=== PATIENT | male | born 1965 | race Caucasian/White ===

== ENCOUNTER → 2018-07-28 10:48 | Day surgery (SDC) | payer BC ==
--- NOTE | 2018-07-22 07:49 | HP ---
CC: Dr. Tanner * HISTORY AND PHYSICAL: DATE OF PLANNED ADMISSION AND SURGERY: 07/28/18 HISTORY OF PRESENT ILLNESS: Mr. Amador is a 53-year-old white male, who is admitted with left renal calculi for shock wave lithotripsy. I have been following Mr. Amador for the last 12 years because of history of renal calculus disease. In January 2006, he underwent shock wave lithotripsy because of a 1.2-cm calculus of the left kidney. A year later, he required left ureteroscopy for ureteral calculus. His last procedure was in April 2012 where he underwent a left ureteroscopy stone extraction. 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 He has been maintained on potassium citrate supplement and HCTZ. He has done well. His recent KUB and renal ultrasound showed 3 left renal calculi with the largest measuring about 7 mm in the mid pole nicholas. The calculus had a triangular shape and will be unlikely to pass spontaneously if it dropped in the ureter. PAST MEDICAL HISTORY AND SYSTEM REVIEW: He is hypertensive, maintained on lisinopril 20 mg daily and on atenolol 25 to 50 mg daily. He is on 1 baby aspirin per day, which was discontinued 1 week prior to the planned procedure. He is on vitamin B6 for the hyperoxaluria. He denies any cardiac or pulmonary symptoms. His last PSA earlier this year was 0.4. ALLERGIES: He denies any allergies to medications. PHYSICAL EXAMINATION GENERAL: He is a pleasant and healthy-looking white male. VITAL SIGNS: Blood pressure 140/80, pulse of 50. LUNGS: Clear. HEART: Regular and rhythmic. No murmurs. ABDOMEN: Soft. No masses, no tenderness, and no CVA tenderness. RECTAL EXAM: Done earlier this year showed a non-enlarged and nonsuspicious prostate. IMPRESSION: Multiple left renal calculi with the largest measuring 7 mm. PLAN: Plan is for shock wave lithotripsy of the left renal calculi. I have discussed the above plans with the patient. Some of the potential complications including hematuria and renal colic were discussed. All of his questions were answered. [id number]/[facility] #: [id number] MTDD
[~2018-07-28 10:48] MED LIST: Buffered Lidocaine 0.9% SYRIN* 5 ML/SYR SYRINGE INTRADERM ONE; Dexamethasone IV* 4 MG/ML 1 ML (4 MG) ONE; Midazolam* 1 MG/ML 5 ML VIAL (5 MG) ONE; Naloxone* 0.4 MG/ML 1 ML VIAL IV PRN; Ondansetron INJ* 2 MG/ML VIAL IV PRN; Ondansetron INJ* 2 MG/ML VIAL ONE; Propofol* 10 MG/ML 20 ML BTL IV PUSH ONE; cefTRIAXone(*) 1 GM ADVAN/BAG ONE; fentaNYL* 50 MCG/ML 2 ML VIAL (100 MCG VIAL) IV PRN; fentaNYL* 50 MCG/ML 2 ML VIAL (100 MCG VIAL) ONE; oxyCODONE/Acetamin 5/325 MG* TAB PO PRN
[2018-07-28 11:24] LABS: ABS Basophils 0 10^3/ul (0-0.2); ABS Eosinophils 0.2 10^3/ul (0-0.6); ABS Monocytes 0.4 10^3/ul (0-0.8); ABS Neutrophils 4.1 10^3/ul (1.5-7.7); ABS Nucleated RBC 0 10^3/ul; Eosinophil % 2.8 % (0-6); Hematocrit 45 % (42-52); Hemoglobin 15.4 g/dl (14.0-18.0); Lymphocyte % 17.2 % (25-47); Mean Corpuscular HGB Conc 35 g/dl (31-36); Mean Corpuscular Hemoglobin 31 pg (27-31); Mean Corpuscular Volume 89 fL (80-94); Mean Platelet Volume 8.1 um3 (7.4-10.4); Nucleated Red Blood Cells % 0.1; Platelet Count 175 10^3/ul (150-450); Red Blood Count 5.02 10^6/ul (4.00-5.40); Red Cell Distribution Width 14 % (10.5-15); White Blood Count 5.6 10^3/ul (3.5-10.8)
[2018-07-28 11:33] LABS: INR 0.88 (0.77-1.02)
[2018-07-28 12:02] LABS: EGFR Non-African American 100.5 (>60)
[2018-07-28 16:11] VITALS: BP 138/90
--- NOTE | 2018-07-29 00:16 | OP ---
CC: Dr. Tanner.* DATE OF OPERATION: 07/28/18 - [facility] DATE OF : 69. SURGEON: Edgar Gill M.D. ANESTHESIOLOGIST: Dr. Demarco Hilliard. ANESTHESIA: General. PRE-OP DIAGNOSIS: Left renal calculi. POST-OP DIAGNOSIS: Left renal calculi. OPERATIVE PROCEDURE: Shock-wave lithotripsy of left renal calculi (7 mm, 5 mm, and 5 mm). INDICATIONS FOR PROCEDURE: Mr. Amador is a 53-year-old white male, who is a stone former, who had required shock-wave lithotripsy of a 1.2-cm calculus of his left kidney in 2005. He had also required left ureteroscopy for stone fragments. He has been doing well. Recent KUB showed a triangular calculus in the mid pole nicholas of the left kidney measuring 7 mm in size. There was one calculus measuring 5 mm in the upper pole and another similar stone in the lower pole. Mostly because of the triangular 7 mm calculus, which is unlikely to pass spontaneously, shock-wave lithotripsy was advised and accepted. PATHOLOGY: At fluoroscopy, 3 radiopaque calculi were noted in the left kidney. No other abnormal calcifications were seen. DESCRIPTION OF PROCEDURE: After successful general anesthesia, the patient was placed in the supine position on the shock-wave lithotripsy table. The 7 mm calculus located in the mid pole nicholas of the left kidney, was well visualized with a PA and the oblique x-ray views, and the position of the patient and the generator were adjusted to have that stone in the focus of the shock waves. A total of 1,200 shocks were then delivered at a rate of 60 shocks per minute. A 3 minutes break was taken after the initial 300 shocks to decrease the risk of renal injury. Fluoroscopy showed good fragmentation of the stone. The upper pole calculus was then targeted and treated with a total of 600 shocks and the lower pole with good fragmentation, and the lower pole calculus was similarly treated with 600 shocks with also good fragmentation. The procedure was smooth. A total of 2,400 shocks were delivered. The result looks satisfactory. The patient tolerated the procedure well and left the operating room in good condition. [id number]/[facility] #: [id number] [facility]
== END | disposition home or self-care (01) ==
LOC: OR 10:48
PROVIDERS: ATTEND Urology
DX: N20.0 Calculus of kidney (principal); Z87.442 Personal history of urinary calculi; I10 Essential (primary) hypertension; E72.53 Primary hyperoxaluria
CPT/HCPCS: 36415; 80048; 85025; 85610; 85730; J0696; J1100; J2250; J2405; J2704; J3010

== ENCOUNTER 2019-05-18 19:18 | Emergency (ER) | payer BC ==
[2019-05-18 19:42] VITALS: BP 145/96
--- NOTE | 2019-05-18 19:46 | UC ---
Respiratory Complaint HPI - HPI Summary HPI Summary: 54 yo male presents with cough. He tells me that he has had a cough for the last week that seems to be getting worse. He has some chest congestion and has been taking OTC cough medicine with no relief. He states that a co-worker of his was recently dx'd with "walking pneumonia" and he is concerned that he may have it. He does not smoke. Denies fever, chills, sinus symptoms, sore throat, SOB, chest pain. - History of Current Complaint Chief Complaint: UCGeneralIllness Stated Complaint: URI Time Seen by Provider: 05/18/19 19:45 Hx Obtained From: Patient Onset/Duration: Gradual Onset Severity Currently: None Pain Intensity: 0 - Allergies/Home Medications Allergies/Adverse Reactions: Allergies Allergy/AdvReac Type Severity Reaction Status Date / Time No Known Allergies Allergy Verified 05/18/19 19:36 PMH/Surg Hx/FS Hx/Imm Hx Cardiovascular History: Hypertension - Surgical History Surgical History: Yes Surgery Procedure, Year, and Place: KIDNEY STONE SURGERIES- LITHTRIPSY AND STENT IN THE PAST. HERNIA REPAIR- INGUINAL- RIGHT AND UMBILICAL. LEFT PINKY FINGER WITH PIN. 1996-ARTHROSCOPY- LEFT KNEE - Family History Known Family History: Positive: Hypertension - Social History Occupation: Employed Full-time Lives: With Family Alcohol Use: None Alcohol Amount: 1 DRINK PER DAY Substance Use Type: None Smoking Status (MU): Never Smoked Tobacco Have You Smoked in the Last Year: No Review of Systems All Other Systems Reviewed And Are Negative: Yes Constitutional: Positive: Negative Skin: Positive: Negative Eyes: Positive: Negative ENT: Positive: Negative Respiratory: Positive: Cough Cardiovascular: Positive: Negative Gastrointestinal: Positive: Negative Neurovascular: Positive: Negative Neurological: Positive: Negative Psychological: Positive: Negative Physical Exam - Summary Physical Exam Summary: GENERAL: NAD. WDWN. No pain distress. SKIN: No rashes, sores, lesions, or open wounds. HEENT: Head: AT/NC Eyes: EOM intact. Conjunctiva clear without inflammation or discharge. Ears: Hearing grossly normal. TMs intact, no bulging, erythema, or edema. Nose: Nasal mucosa pink and moist. NTTP maxillary and frontal sinus. Throat: Posterior oropharynx without exudates, erythema, or tonsillar enlargement. Uvula midline. NECK: Supple. Nontender. No lymphadenopathy. CHEST: CTAB. No r/r/w. No accessory muscle use. Breathing comfortably and in no distress. CV: RRR. Without m/r/g. Pulses intact. Cap refill <2seconds NEURO: Alert. PSYCH: Age appropriate behavior. Triage Information Reviewed: Yes Vital Signs: Initial Vital Signs Temp 98.6 F 05/18/19 19:38 Pulse 56 05/18/19 19:38 Resp 16 05/18/19 19:38 BP 145/96 05/18/19 19:38 Pulse Ox 98 05/18/19 19:38 Vital Signs Reviewed: Yes Respiratory Course/Dx - Course Course Of Treatment: CXR: No radiologist reading after 1800, therefore wet read by myself is negative for PNA. Given his continued worsening symptoms and exposure to PNA, will rx for anbx at this time. - Differential Dx/Diagnosis Provider Diagnosis: Bronchitis Discharge - Sign-Out/Discharge Documenting (check all that apply): Patient Departure All imaging exams completed and their final reports reviewed: No - Discharge Plan Condition: Stable Disposition: HOME Prescriptions: DOXYcycline CAP(*) [DOXYcycline 100MG CAP(*)] 100 mg PO BID #14 cap Patient Education Materials: Acute Bronchitis (ED) Referrals: Suresh Tanner MD [Primary Care Provider] - Additional Instructions: If you develop a fever, shortness of breath, chest pain, new or worsening symptoms - please call your PCP or go to the ED immediately. Your blood pressure was high at todays visit. Please see your primary provider within 4 weeks for recheck and re-evaluation. - Billing Disposition and Condition Condition: STABLE Disposition: Home - Attestation Statements Provider Attestation: I was available for consult. This patient was seen by the [facility]. The patient was not presented to, seen by, or examined by me. -[place]
--- NOTE | 2019-05-19 07:55 | UC ---
- EKG/XRAY/CT XRAY: chest - Chronic pleural scarring at right lung base. Negative for acute finding Course/Dx - Diagnoses Provider Diagnoses: Bronchitis Discharge - Sign-Out/Discharge Documenting (check all that apply): Post-Discharge Follow Up All imaging exams completed and their final reports reviewed: Yes - Discharge Plan Condition: Stable Disposition: HOME Prescriptions: DOXYcycline CAP(*) [DOXYcycline 100MG CAP(*)] 100 mg PO BID #14 cap Patient Education Materials: Acute Bronchitis (ED) Referrals: Suresh Tanner MD [Primary Care Provider] - Additional Instructions: If you develop a fever, shortness of breath, chest pain, new or worsening symptoms - please call your PCP or go to the ED immediately. Your blood pressure was high at todays visit. Please see your primary provider within 4 weeks for recheck and re-evaluation. - Billing Disposition and Condition Condition: STABLE Disposition: Home
== END 2019-05-18 20:24 | disposition home or self-care (01) ==
LOC: UCEAST 19:18
DX: J40 Bronchitis, not specified as acute or chronic (principal); I10 Essential (primary) hypertension
CPT/HCPCS: 71046; 99212; G0463